=== PATIENT | female | born 1960 | race Caucasian/White ===

== ENCOUNTER → 2017-12-03 | Outpatient (CLI) | payer MEDICARE | END | disposition home or self-care (01) | LOC: MAMMO 14:38 | DX: Z12.31 Encounter for screening mammogram for malignant neoplasm of breast (principal) | CPT/HCPCS: 77063; 77067 ==

== ENCOUNTER → 2017-12-20 | Outpatient (CLI) | payer MEDICARE ==
[~2017-12-20] MED LIST: LIDOCAINE 2%/EPI 1:100,000 20 ML VIAL.; MIDAZOLAM HCL/PF 2 MG/2 ML VIAL.; PROMETHAZINE IM 25 MG/ML VIAL IM; fentaNYL PF VIAL 100 MCG/2 ML VIAL; oxyCODONE IR 5 MG TABLET PO
[2017-12-20 09:45] LABS: ADD MAN DIFF? NO
[2017-12-20 09:58] LABS: BASO # 0.1 x10^3/uL (0.0-0.2); BASO % 1 % (0-3); EOS # 0.2 x10^3/uL (0.0-0.7); EOS % 2 % (0-3); HEMATOCRIT 35.2 % (36.0-47.0); HEMOGLOBIN 11.6 g/dL (12.0-15.5); LYMPH # 2.6 x10^3/uL (1.0-4.8); LYMPH % 34 % (24-48); MEAN CORPUSCULAR HEMOGLOBIN 27 pg (25-35); MEAN CORPUSCULAR HGB CONC 33 g/dL (31-37); MEAN CORPUSCULAR VOLUME 83 fL (79-100); MONO # 0.8 x10^3/uL (0.0-1.1); MONO % 10 % (0-9); NEUT % 52 % (31-73); PLATELET COUNT 203 x10^3/uL (140-400); RED BLOOD COUNT 4.24 x10^6/uL (3.50-5.40); WHITE BLOOD COUNT 7.6 x10^3/uL (4.0-11.0)
[2017-12-20 09:59] LABS: INR 1.1 (0.8-1.1); PROTHROMBIN TIME PATIENT 13.4 SEC (11.7-14.0)
[2017-12-20] MEDS: PROMETHAZINE 12.5 MG in IV DEXTROSE 5% 50 ML IV (10:00)
[2017-12-20] MEDS: LIDOCAINE 2%/EPI 1:100,000 20 ML VIAL. IJ (11:59)
[2017-12-20] MEDS: MIDAZOLAM HCL/PF 2 MG/2 ML VIAL. IV (12:00)
[2017-12-20] MEDS: fentaNYL PF VIAL 100 MCG/2 ML VIAL IV (12:01)
== END | disposition home or self-care (01) ==
LOC: INTRAD 09:10
DX: I87.2 Venous insufficiency (chronic) (peripheral) (principal); E66.9 Obesity, unspecified; Z88.1 Allergy status to other antibiotic agents; Z88.2 Allergy status to sulfonamides; Z91.040 Latex allergy status; Z88.8 Allergy status to other drugs, medicaments and biological substances; Z91.041 Radiographic dye allergy status; I10 Essential (primary) hypertension; Z90.49 Acquired absence of other specified parts of digestive tract; K21.9 Gastro-esophageal reflux disease without esophagitis; Z90.721 Acquired absence of ovaries, unilateral; E89.0 Postprocedural hypothyroidism; F41.9 Anxiety disorder, unspecified
CPT/HCPCS: 36415; 36561; 36590; 76937; 77001; 85025; 85610; 99152; 99153; A4215; C1751; C1892; J0690; J1644; J2060; J2250; J2550; J3010; J3490

== ENCOUNTER 2018-04-08 14:45 | Emergency (ER) | payer MEDICARE ==
[2018-04-08 15:45] LABS: ADD MAN DIFF? NO
[2018-04-08 15:48] LABS: BASO % 1 % (0-3); EOS # 0.1 x10^3/uL (0.0-0.7); EOS % 2 % (0-3); HEMATOCRIT 36.3 % (36.0-47.0); HEMOGLOBIN 11.8 g/dL (12.0-15.5); LYMPH # 2.5 x10^3/uL (1.0-4.8); LYMPH % 31 % (24-48); MEAN CORPUSCULAR HEMOGLOBIN 28 pg (25-35); MEAN CORPUSCULAR HGB CONC 33 g/dL (31-37); MEAN CORPUSCULAR VOLUME 85 fL (79-100); MONO # 0.8 x10^3/uL (0.0-1.1); MONO % 10 % (0-9); NEUT # 4.6 x10^3uL (1.8-7.7); NEUT % 57 % (31-73); PLATELET COUNT 212 x10^3/uL (140-400); RED BLOOD COUNT 4.25 x10^6/uL (3.50-5.40); RED CELL DISTRIBUTION WIDTH 17.4 % (11.5-14.5); WHITE BLOOD COUNT 8.2 x10^3/uL (4.0-11.0)
[2018-04-08 15:49] LABS: BILIRUBIN,URINE NEGATIVE (NEG); CLARITY,URINE CLEAR; COLOR,URINE YELLOW; GLUCOSE,URINE NEGATIVE (NEG); NITRITE,URINE NEGATIVE (NEG); PH,URINE 5.5; PROTEIN,URINE NEGATIVE (NEG-TRACE)
[2018-04-08 15:56] LABS: ANION GAP 7 (6-14); BLOOD UREA NITROGEN 16 mg/dL (7-20); BUN/CREATININE RATIO 18 (6-20); CALCIUM 7.9 mg/dL (8.5-10.1); CARBON DIOXIDE 30 mmol/L (21-32); CHLORIDE 105 mmol/L (98-107); CREATININE 0.9 mg/dL (0.6-1.0); GFR 63.9; GLUCOSE 82 mg/dL (70-99); POTASSIUM 3.9 mmol/L (3.5-5.1); SODIUM 142 mmol/L (136-145)
[2018-04-08 16:02] LABS: ALBUMIN 3.3 g/dL (3.4-5.0); ALK PHOS 113 U/L (46-116); ALT (SGPT) 22 U/L (14-59); AST (SGOT) 17 U/L (15-37); TOTAL BILIRUBIN 0.5 mg/dL (0.2-1.0); TOTAL PROTEIN 6.5 g/dL (6.4-8.2)
[2018-04-08 16:03] LABS: BACTERIA,URINE 0 /HPF (0-FEW); HYALINE CASTS, URINE FEW /HPF; RBC,URINE 0 /HPF (0-2); SQUAMOUS EPITHELIAL CELL,UR OCC /LPF; WBC,URINE OCC /HPF (0-4)
[2018-04-08] MEDS: fentaNYL PF VIAL 100 MCG/2 ML VIAL IV (16:16)
[2018-04-08] MEDS: PROMETHAZINE IM 25 MG/ML VIAL IM (16:42)
[2018-04-08] MEDS: NON FORMULARY ITEM 1 EA in IV NORMAL SALINE 50ML 50 ML IV (16:46)
[2018-04-08 16:56] LABS: PROCALCITONIN < 0.10 ng/mL (0.00-0.10)
[2018-04-08 18:19] LABS: LACTIC ACID 1.5 mmol/L (0.4-2.0)
[2018-04-08] MEDS: HEPARIN PF 500 UNIT/5 ML DISP.SYRIN. IV (19:11)
== END 2018-04-08 19:15 | disposition home or self-care (01) ==
LOC: ER 14:45
DX: R10.32 Left lower quadrant pain (principal); R10.84 Generalized abdominal pain; R10.31 Right lower quadrant pain; K21.9 Gastro-esophageal reflux disease without esophagitis; I10 Essential (primary) hypertension; Z90.49 Acquired absence of other specified parts of digestive tract; Z88.2 Allergy status to sulfonamides; Z88.6 Allergy status to analgesic agent; Z88.1 Allergy status to other antibiotic agents; Z91.041 Radiographic dye allergy status; Z91.040 Latex allergy status; Z88.5 Allergy status to narcotic agent; Z88.8 Allergy status to other drugs, medicaments and biological substances
CPT/HCPCS: 36415; 74022; 74176; 80053; 81001; 83605; 84145; 84443; 85025; 96365; 96372; 96375; 99285-25; J2550; J3010

== ENCOUNTER → 2018-08-22 | Outpatient (CLI) | payer MEDICARE ==
[2018-07-25 14:08] VITALS: BP 114/60
[~2018-08-22] MED LIST changes: +CLON1TAB PO; +GABA-586 PO; +LEVO175T2 PO; -LIDOCAINE 2%/EPI 1:100,000 20 ML VIAL.; +LISI-334 PO; -MIDAZOLAM HCL/PF 2 MG/2 ML VIAL.; +OXYC15TA PO; +PANT20TA2 PO; -PROMETHAZINE IM 25 MG/ML VIAL IM; +SENN-37 PO; -fentaNYL PF VIAL 100 MCG/2 ML VIAL; -oxyCODONE IR 5 MG TABLET PO
--- NOTE | 2018-08-23 09:52 | SLEEP ---
DATE OF STUDY: 08/22/2018 ATTENDING PHYSICIAN: Dr. Jc Mena REFERRING PHYSICIAN: Dr. Zeng. The patient is a 58-year-old who weighs 146 pounds with a BMI of 28. The patient's Garland score was 7. The patient underwent a diagnostic sleep study at [facility]. During the night study, the patient spent 439 minutes in bed and slept for 380 minutes with a sleep efficiency of 87%. Sleep latency was 7 minutes, with a REM latency of 400 minutes, which is prolonged. Overall, sleep architecture showed normal stage 1 sleep, increased stage 2 sleep, normal slow wave and reduced REM sleep, which is 4% of the total sleep time. During the night study, the patient had 18 obstructive apneas, 3 mixed apneas, no central apneas and 62 hypopneas. The patient's apnea hypopnea index was 13 per hour, supine index 16 per hour and a REM index of 71 per hour. EKG monitoring revealed normal sinus rhythm, average heart rate was 80 beats per minute, no sustained arrhythmias were observed. Nocturnal oximetry study revealed a mean oxygen saturation of 98%, the lowest of 80%. 5% of time oxygen saturation remained between 80% and 89%. PLMS were not seen. Due to low AHI, the patient did not meet the split night criteria for CPAP initiation. IMPRESSION: 1. Mild sleep apnea-hypopnea syndrome with moderate increase during supine sleep and further worsening during REM sleep. Total AHI of 13 per hour. Supine AHI 16 per hour and a REM AHI of 71 per hour. 2. Mild nocturnal hypoxia secondary to obstructive sleep apnea. 3. No clinically significant PLMS. RECOMMENDATIONS: 1. If the patient is clinically symptomatic or has co-morbid conditions, then the patient would benefit from treatment of sleep apnea with either an oral appliance or a trial of CPAP titration. 2. If the patient undergoes CPAP titration study, then she should be followed up in 4-6 weeks to assess compliance with CPAP and to document clinical improvement. 3. Avoid HEALTH AND WELLNESS COORDINATOR depressants. 4. Caution regarding driving until symptoms of sleep apnea resolve with the above recommendations. 5. Weight loss is advised. ERIC TEE MD DR: ALIA/riccardo JOB#: [id number] / [id number] JC Sal SABATO MTDD
== END | disposition home or self-care (01) ==
LOC: SLPLAB 14:27
PROVIDERS: ATTEND Internal Medicine Pulmonary Disease
DX: G47.33 Obstructive sleep apnea (adult) (pediatric) (principal); G47.34 Idiopathic sleep related nonobstructive alveolar hypoventilation
CPT/HCPCS: 95810

== ENCOUNTER → 2018-09-26 | Outpatient (CLI) | payer MEDICARE ==
[2018-07-25 14:08] VITALS: BP 114/60
[~2018-09-26] MED LIST changes: -GABA-586 PO; +GABA300C18 PO; +GADOBUTROL 7.5 MMOL/7.5 ML VIAL ONE
--- NOTE | 2018-09-26 09:25 | RAD ---
PQRS Compliance Statement: One or more of the following individualized dose reduction techniques were utilized for this examination: 1. Automated exposure control 2. Adjustment of the mA and/or kV according to patient size 3. Use of iterative reconstruction technique CT chest without contrast September 26, 2018 INDICATION: Lung nodule. COMPARISON: CT abdomen/pelvis April 08, 2018 TECHNIQUE: Multiple axial CT images of the chest were obtained without intravenous contrast. Coronal and sagittal reformats are provided. FINDINGS: Chest wall infusion port catheter is identified with the distal tip terminating in the cavoatrial junction. Heart size within normal limits. Ascending thoracic aorta is normal in caliber measuring up to 3.3 cm. No significant pericardial effusion. Trachea is normal in appearance. Thoracic esophagus is intact. No pathologically enlarged axillary, mediastinal or hilar lymph nodes are identified. There is mild centrilobular pulmonary emphysema. Stable 5 mm solid noncalcified pulmonary nodule in the right middle lobe (series 2, image 30). No additional solid noncalcified pulmonary nodules are identified. There are no pleural effusions. No pulmonary vascular congestion or pneumothorax. Gallbladder surgically absent. Adrenal glands are normal in appearance. There is mild fatty atrophy of the pancreas. No suspicious osseous amount is identified. IMPRESSION: Stable 5 mm solid noncalcified pulmonary nodule in the right middle lobe. Fleischner 2017 pulmonary nodule guidelines recommend optional chest CT in one year for pulmonary nodules greater than or equal to 6 mm. Electronically signed by: Lesley Pang MD (09/26/2018 9:21 AM) [facility]
== END | disposition home or self-care (01) ==
LOC: CT 08:28
PROVIDERS: ATTEND Internal Medicine Pulmonary Disease
DX: R91.1 Solitary pulmonary nodule (principal); J43.2 Centrilobular emphysema; K86.89 Other specified diseases of pancreas
CPT/HCPCS: 71250

== ENCOUNTER → 2018-09-26 | Outpatient (CLI) | payer MEDICARE ==
[2018-07-25 14:08] VITALS: BP 114/60
[~2018-09-26] MED LIST changes: +GADOBUTROL 7.5 MMOL/7.5 ML VIAL IV ONE; -GADOBUTROL 7.5 MMOL/7.5 ML VIAL ONE; +HEPARIN PF 500 UNIT/5 ML DISP.SYRIN. IV ONE
--- NOTE | 2018-09-28 09:06 | RAD ---
Fluoroscopic evaluation right internal jugular PowerPort 09/26/2018 Indication: Paroxysmal discomfort and redness Discussion: The risks and benefits of the procedure were discussed the patient. Informed consent was obtained. A timeout procedure was performed. The right chest was prepped using sterile barrier technique. Fluoroscopic evaluation demonstrates the port to be normal in position. No gross fracture is identified. The port was accessed. Gadolinium based contrast was administered through the port demonstrating no extravasation. Contrast flows from the catheter tip in an expected fashion. The catheter was flushed and packed with heparin. Fluoroscopy time 0.5 MINUTES dose area product 15 Gycm2 Impression: Normal fluoroscopic findings.
== END | disposition home or self-care (01) ==
LOC: INTRAD 08:25
PROVIDERS: ATTEND Surgery
DX: Z45.2 Encounter for adjustment and management of vascular access device (principal); G47.33 Obstructive sleep apnea (adult) (pediatric); I10 Essential (primary) hypertension; K21.9 Gastro-esophageal reflux disease without esophagitis; Z90.49 Acquired absence of other specified parts of digestive tract; Z91.041 Radiographic dye allergy status; Z88.2 Allergy status to sulfonamides; Z88.1 Allergy status to other antibiotic agents; Z88.8 Allergy status to other drugs, medicaments and biological substances; Z98.890 Other specified postprocedural states; Z88.6 Allergy status to analgesic agent
CPT/HCPCS: 36598; A9585

== ENCOUNTER 2018-10-07 07:17 | Outpatient (CLI) | payer MEDICARE ==
[2018-10-07] VITALS (8 sets, daily range): BP systolic 110–145; BP diastolic 65–90
[~2018-10-07] VITALS: Ht 154.9 cm; Wt 67.1 kg
[~2018-10-07 07:17] MED LIST changes: -GADOBUTROL 7.5 MMOL/7.5 ML VIAL IV ONE; -HEPARIN PF 500 UNIT/5 ML DISP.SYRIN. IV ONE
[2018-10-07] MEDS ORDERED: LIDOCAINE 1%/EPI 1:100,000 20 ML VIAL. ONE (07:46)
[2018-10-07] MEDS ORDERED: ALPR0.5T PO (08:05)
[2018-10-07 08:13] LABS: BASO # 0.1 x10^3/uL (0.0-0.2); BASO % 1 % (0-3); EOS # 0.2 x10^3/uL (0.0-0.7); EOS % 2 % (0-3); HEMATOCRIT 35.8 % (36.0-47.0); HEMOGLOBIN 12.3 g/dL (12.0-15.5); LYMPH # 2.6 x10^3/uL (1.0-4.8); LYMPH % 30 % (24-48); MEAN CORPUSCULAR HEMOGLOBIN 30 pg (25-35); MEAN CORPUSCULAR HGB CONC 35 g/dL (31-37); MEAN CORPUSCULAR VOLUME 87 fL (79-100); MONO # 0.8 x10^3/uL (0.0-1.1); MONO % 9 % (0-9); NEUT # 5.2 x10^3uL (1.8-7.7); NEUT % 59 % (31-73); PLATELET COUNT 223 x10^3/uL (140-400); RED BLOOD COUNT 4.12 x10^6/uL (3.50-5.40); RED CELL DISTRIBUTION WIDTH 15.6 % (11.5-14.5); WHITE BLOOD COUNT 8.9 x10^3/uL (4.0-11.0)
[2018-10-07 08:22] LABS: PROTHROMBIN TIME PATIENT 13.9 SEC (11.7-14.0)
[2018-10-07 08:33] LABS: PARTIAL THROMBOPLASTIN TIME > 150 SEC (24-38)
[2018-10-07] MEDS ORDERED: HEPARIN PF 500 UNIT/5 ML DISP.SYRIN. IV ONE ×2 (08:51→09:45)
[2018-10-07 08:54] LABS: PROTHROMBIN TIME PATIENT 13.4 SEC (11.7-14.0)
[2018-10-07] MEDS ORDERED: VANCOMYCIN 1GM IVPB FOR OMNI 250 ML ONE (09:10)
[2018-10-07] MEDS ORDERED: MIDAZOLAM HCL/PF 5 MG/5 ML VIAL. ONE (09:10)
[2018-10-07] MEDS ORDERED: fentaNYL PF VIAL 250 MCG/5 ML VIAL ONE (09:11)
[2018-10-07] MEDS ORDERED: ONDANSETRON PF 4 MG/2 ML VIAL. ONE (09:20)
[2018-10-07] MEDS ORDERED: VANCOMYCIN 1GM IVPB FOR OMNI 250 ML IRR ONE (09:45)
[2018-10-07] MEDS ORDERED: LIDOCAINE 1%/EPI 1:100,000 20 ML VIAL. IJ ONE (09:45)
[2018-10-07] MEDS ORDERED: ONDANSETRON PF 4 MG/2 ML VIAL. IV ONE (09:45)
[2018-10-07] MEDS ORDERED: fentaNYL PF VIAL 250 MCG/5 ML VIAL IV ONE (09:45)
[2018-10-07] MEDS ORDERED: MIDAZOLAM HCL/PF 5 MG/5 ML VIAL. IV ONE (09:45)
--- NOTE | 2018-10-07 13:33 | NUR ---
Discharge Note: MIS LASSITER Discharge instructions and discharge home medications reviewed with Patient and a copy given. All questions have been answered and understanding verbalized. The following instructions and handouts were given: education was given to patient regarding moderate sedation and aris cath replacement. Pt was also instructed to continue home medications as directed. Pt verbalized understanding. Discontinued lines and drains: peripheral iv was discontinued with no complications. Catheter tip was intact. Patient discharged to home with self care via self care. Pt was accompanied by daughter.
--- NOTE | 2018-10-07 14:13 | RAD ---
Procedure: Ultrasound and fluoroscopically guided placement of left internal jugular power port.. Removal of right internal jugular port 10/07/2018 2:06 PM Clinical Indication: Intermittent pain and redness. Patient no longer wants right-sided port, but reports frequent hospitalization in need for infusions with difficult IV access. Sedation: Conscious sedation was administered for 60 minutes. The patient was monitored by a qualified independent observer throughout the time of sedation. Please refer to the medical record for exact doses of medications utilized to achieve moderate sedation. Fluoroscopy time: 1.0 MIN Dose area product: 2 Gycm2 Consent: The procedure was explained in its entirety to the patient or the patients designated customer contact representative by a member of the treatment team, including a discussion of the risks, benefits and commonly accepted alternatives to the procedure, as well as the expected consequences of no therapy whatsoever. Discussion of the risks included, but was not limited to, those that are most frequent and those that are rare but possibly severe or life-threatening, as well as the possibility of unforeseen complications. Technique and Findings: All elements of maximal sterile barrier technique including the use of a cap, mask, sterile gown, sterile gloves, large sterile sheet, appropriate hand hygiene, and 2% chlorhexidine for cutaneous antisepsis (or acceptable alternative antiseptic per current guidelines) were followed for this procedure. Following informed consent, and a timeout procedure, the patient was prepped and draped in the usual sterile fashion. Ultrasound interrogation of the right neck revealed patency and compressibility of the left internal jugular vein. A 21-gauge micropuncture was then used to gain access to this vein under ultrasound guidance. A hard copy ultrasound image was recorded. The needle was exchanged over a wire for a sheath. A 1 inch incision was made several centimeters inferior to the venotomy site. A catheter was tunneled from this site dermatotomy site in the neck. Catheter was advanced through peel-away sheath such that its tip was in the proximal right atrium with the patient supine. The catheter was trimmed to length and connected to the port reservoir. The port was found to flush and aspirate normally. The wound was closed in layers using 4-0 Vicryl suture. Sterile dressings were applied. 1% lidocaine was made over the right internal jugular power port reservoir. The port and catheter were removed intact. This was confirmed fluoroscopically. The wound was closed in layers using 4-0 Vicryl suture. Sterile dressings were applied Impression: 1.Successful ultrasound and fluoroscopically guided placement of a left internal jugular tunneled central venous catheter with port 2. Successful removal of right internal jugular tunneled central venous catheter with port
== END 2018-10-07 12:50 | disposition home or self-care (01) ==
LOC: INTRAD 07:17
PROVIDERS: ATTEND Surgery
DX: Z45.2 Encounter for adjustment and management of vascular access device (principal); I10 Essential (primary) hypertension; Z88.2 Allergy status to sulfonamides; Z88.1 Allergy status to other antibiotic agents; Z88.5 Allergy status to narcotic agent; Z91.041 Radiographic dye allergy status; Z91.040 Latex allergy status; Z88.8 Allergy status to other drugs, medicaments and biological substances; Z79.01 Long term (current) use of anticoagulants; Z79.899 Other long term (current) drug therapy
CPT/HCPCS: 36415; 36561; 36590; 76937; 77001; 85025; 85610; 85730; 99152; 99153; C1788; C1892; J2250; J2405; J3010; J3370; J3490; C1751

== ENCOUNTER → 2019-05-02 | Outpatient (CLI) | payer MEDICARE ==
[2019-04-12 13:14] VITALS: BP 114/74
[~2019-05-02] MED LIST changes: +ALPR0.5T PO
--- NOTE | 2019-05-02 14:26 | RAD ---
Chest CT without contrast Clinical indications: Musculoskeletal chest pain. COMPARISON: September 26, 2018. TECHNIQUE: Noncontrast helical CT scanning of the chest was performed. Without contrast, the sensitivity to detect organ pathology is decreased. PQRS compliance Statement One or more of the following individualized dose reduction techniques were utilized for this study: 1. Automated exposure control 2. Adjustment of the mA and/or kV according to patient size 3. Use of iterative reconstruction technique FINDINGS: No enlarged thoracic lymphadenopathy is evident. No focal aneurysmal dilatation of the thoracic aorta is seen. The heart size is normal and no pericardial effusion is seen. No adrenal mass is evident. Again seen is a 5 mm lung nodule within the lateral segment right middle lobe which is unchanged. This could be seen on abdomen CT dated January 17, 2015 consistent with a benign finding. No new lung nodules. Few scattered areas of groundglass lung infiltrates are seen most likely representing atelectasis. No lung consolidation is seen. No pleural effusion or pneumothorax is evident. The proximal bronchial tree is patent. No lytic process is seen. No compression fracture is evident. No rib fracture is seen. IMPRESSION: No acute abnormality of the chest is seen. Stable 5 mm lung nodule since 2014 consistent with a benign finding. Electronically signed by: Tae Mckeon MD (05/02/2019 2:23 PM) [facility]
== END | disposition home or self-care (01) ==
LOC: CT 09:34
PROVIDERS: ATTEND Surgery
DX: R91.1 Solitary pulmonary nodule (principal); R91.8 Other nonspecific abnormal finding of lung field; Z85.72 Personal history of non-Hodgkin lymphomas
CPT/HCPCS: 71250

== ENCOUNTER 2019-05-25 09:16 | Day surgery (SDC) | payer MEDICARE, OTHER ==
[~2019-05-25] VITALS: Ht 152.4 cm; Wt 72.0 kg
[~2019-05-25 09:16] MED LIST changes: +ACETAMINOPHEN 500 MG TABLET PO PRN; +ALPR1TAB6 PO; +ASPI-630 PO; +BUPIVACAINE-EPI 0.25%-1:200000 MPF 30 ML VIAL. INJ ONE; +CEPH-264 PO; +EPIPEN 2-P0.3 MG/0.3 IJ; +ERGO500027 PO; +IV RINGERS,LACTATED 1000ML 1,000 ML IV SCH; +LEVO112T4 PO; +LIDOCAINE 1% PF 2 ML VIAL. ID PRN; +LISI30TA4 PO; +MULT1TAB52 PO; +ONDANSETRON PF 4 MG/2 ML VIAL. IV PRN; +OXYC30TA21 PO; +PROCHLORPERAZINE 10 MG/2 ML VIAL. IV PRN
[2019-05-25] MEDS ORDERED: PROPOFOL 20 ML IV ONE ×2 (09:45→12:31)
[2019-05-25] MEDS ORDERED: MIDAZOLAM HCL/PF 2 MG/2 ML VIAL. ONE (09:45)
[2019-05-25] MEDS ORDERED: fentaNYL PF VIAL 100 MCG/2 ML VIAL ONE (09:45)
--- NOTE | 2019-05-25 11:20 | PDOC4 ---
Operative Note Operative Note Date: 05/25/2019 Preoperative diagnosis: Right chest wall mass with pain Postoperative diagnosis: Same Procedure: Excision of right chest wall mass Surgeon: Emmanuel Specimen: Right chest wall mass Dictation: Patient is a 59-year-old female who's had a Port-A-Cath placed on her left chest which had to be removed subsequent had a right Port-A-Cath placed but the site of the previous left Port-A-Cath is become painful with a keloid formation and a mass. The procedure of excision was explained to the patient detail risk benefits were also discussed including bleeding infection alternatives to this procedure also discussed with patient seemed to understand jeevan verbal and written consent to have the procedure performed. Patient was taken to the operating room placed in supine position IV sedation was initiated by anesthesia once patient was brought was sedated her left neck and chest were prepped and draped usual sterile fashion using alcohol secondary to her allergies. Area around the mass was injected with quarter percent Marcaine with epinephrine elliptical incision was made with 15 blade scalpel was carried down through the subcutaneous tissue was completely excised and sent for pathology hemostasis control electrocautery wound was then closed in 2 layers a deep layer running 3-0 Vicryl and skin was approximate for septic and a Monocryl Mastisol Steri-Strips and island dressing were applied. Patient was awakened from sedation taken to recovery in stable condition all sponge instrument needle counts listed as correct estimate blood loss 5 mL LUZ IYER MD May 25, 2019 11:20
--- NOTE | 2019-05-25 11:23 | DISCH ---
DISCHARGE INSTRUCTIONS Condition on Discharge Condition on Discharge: Stable Activity After Discharge Activity Instructions for Disc: Activity as tolerated Diet after Discharge Diet after Discharge: Regular Wound Incision Care Other wound/incision instructi: May shower in 24 hours Contacting the DRDavid after DC Call your doctor for: If your condition worsens Follow-Up Follow up with: Dr. Iyer in 2 weeks LUZ IYER MD May 25, 2019 11:23
[2019-05-25] MEDS ORDERED: ALPRAZolam 1 MG TABLET PO ONE (12:00)
[2019-05-25] MEDS ORDERED: PHENYLEPHRINE in 0.9% NACL PF 1 MG/10 ML SYRINGE. IV ONE (12:14)
[2019-05-25] MEDS ORDERED: GLYCOPYRROLATE 1 MG/5 ML VIAL. ONE (12:15)
[2019-05-25] MEDS ORDERED: ESMOLOL 100 MG/10 ML VIAL. IVP ONE (12:26)
[2019-05-25] MEDS ORDERED: HEPARIN PF 500 UNIT/5 ML DISP.SYRIN. IV ONE ×2 (12:55→13:00)
[2019-05-25 13:20] VITALS: BP 106/53
--- NOTE | 2019-05-30 17:06 | PATHOLOGY ---
[facility] Accession Number: [id number] . 01 Material submitted: . chest - CHEST WALL MASS RIGHT SIDE. Modifiers: wall, right . 01 Clinical history: . Right chest wall pain, keloid . 02 Diagnosis: Skin and subcutaneous tissue, right side chest wall mass excision: - Keloid, with focal chronic inflammation and foreign body granulomatous reaction. (JPM:jose alfredo; 05/30/2019) QMS/05/30/2019 . 02 Comment: There is no evidence of malignancy. . 02 Electronically signed: . Kris Chaney MD, Pathologist NPI- [id number] . 01 Gross description: . Received in formalin labeled "Barbara Quintana, chest wall mass right side," is an ellipse of skin with attached underlying soft tissue measuring 4.0 x 1.3 cm and excised to a depth of up to 1.3 cm. The epidermal surface displays a raised, pale pink-arias possible scar measuring 2.0 x 0.4 x 0.1 cm that extends to within 0.2 cm of both peripheral edges. The surgical margin is inked. Serial sectioning reveals firm, pale arias to partially hemorrhagic cut surfaces through the possible scar. The remaining cut surfaces are pale yellow-arias to partially hemorrhagic in appearance. The specimen is sectioned into 15 pieces and submitted entirely in cassettes A1 through A7, with bisected tips in A7. . Also received within the specimen container is a segment of pale arias to dark brown soft tissue admixed with yellow, lobulated adipose tissue measuring 1.4 x 1.2 x 0.3 cm. This segment is inked black, sectioned and submitted entirely in cassette A8. (DAC; 05/26/2019) XDC/XDC . 02 Pathologist provided ICD-10: L91.0 . 02 CPT . 703102 Specimen Comment: A courtesy copy of this report has been sent to Specimen Comment: [phone], . Specimen Comment: Report sent to / DR RUSSELL Performed at: 01 [facility] [address], [place] [id number] MD Bassem Wayne MD Phone: [phone] Performed at: 02 [facility] [address] [place], [place] [id number] MD Kris Chaney MD Phone: [phone]
== END 2019-05-25 13:30 | disposition home or self-care (01) ==
LOC: SURG 09:16
PROVIDERS: ATTEND Surgery
DX: L91.0 Hypertrophic scar (principal); L08.89 Other specified local infections of the skin and subcutaneous tissue; I10 Essential (primary) hypertension; F41.9 Anxiety disorder, unspecified; E89.0 Postprocedural hypothyroidism; Z98.51 Tubal ligation status; Z79.82 Long term (current) use of aspirin; Z98.890 Other specified postprocedural states; Z90.721 Acquired absence of ovaries, unilateral; Z88.5 Allergy status to narcotic agent; Z88.8 Allergy status to other drugs, medicaments and biological substances; Z88.6 Allergy status to analgesic agent; Z88.1 Allergy status to other antibiotic agents; Z91.040 Latex allergy status
CPT/HCPCS: 11404; 12032; J0780; J2250; J2370; J2704; J3010; J3490; 88305

== ENCOUNTER → 2019-09-11 | Outpatient (CLI) | payer MEDICARE, OTHER ==
[2019-08-16 13:13] VITALS: BP 151/68
[~2019-09-11] MED LIST changes: -ACETAMINOPHEN 500 MG TABLET PO PRN; +ALTEPLASE 2 MG VIAL INT CAT ONE; +ALTEPLASE 2MG VIAL 5 MG in IV NORMAL SALINE 50ML 30 ML IV ONE; -BUPIVACAINE-EPI 0.25%-1:200000 MPF 30 ML VIAL. INJ ONE; +HEPARIN PF 500 UNIT/5 ML DISP.SYRIN. IVP ONE; -IV RINGERS,LACTATED 1000ML 1,000 ML IV SCH; -LIDOCAINE 1% PF 2 ML VIAL. ID PRN; -ONDANSETRON PF 4 MG/2 ML VIAL. IV PRN; -PROCHLORPERAZINE 10 MG/2 ML VIAL. IV PRN
[2019-09-11 15:28] LABS: ALBUMIN 3.2 g/dL (3.4-5.0); ALBUMIN/GLOBULIN RATIO 0.8 (1.0-1.7); CALCIUM 8.8 mg/dL (8.5-10.1); CREATININE 0.8 mg/dL (0.6-1.0); GFR 72.9; POTASSIUM 3.9 mmol/L (3.5-5.1); TOTAL BILIRUBIN 0.7 mg/dL (0.2-1.0); TOTAL PROTEIN 7.1 g/dL (6.4-8.2)
== END | disposition home or self-care (01) ==
LOC: LAB 11:09
PROVIDERS: ATTEND Family Medicine
DX: Z45.2 Encounter for adjustment and management of vascular access device (principal); E87.6 Hypokalemia; F41.9 Anxiety disorder, unspecified; I10 Essential (primary) hypertension; E03.3 Postinfectious hypothyroidism; Z79.82 Long term (current) use of aspirin
CPT/HCPCS: 36415; 36593; 80053; 84436; 84443; J2997; 36591; 96374; 96523

== ENCOUNTER → 2019-10-13 | Outpatient (CLI) | payer MEDICARE, OTHER ==
[2019-08-16 13:13] VITALS: BP 151/68
[~2019-10-13] MED LIST changes: -ALTEPLASE 2 MG VIAL INT CAT ONE; -ALTEPLASE 2MG VIAL 5 MG in IV NORMAL SALINE 50ML 30 ML IV ONE
== END | disposition home or self-care (01) ==
LOC: OPS 12:29
PROVIDERS: ATTEND Family Medicine
DX: Z45.2 Encounter for adjustment and management of vascular access device (principal); F41.9 Anxiety disorder, unspecified; I10 Essential (primary) hypertension; E03.3 Postinfectious hypothyroidism; Z79.82 Long term (current) use of aspirin
CPT/HCPCS: 96523

== ENCOUNTER → 2020-01-12 | Outpatient (CLI) | payer MEDICARE, OTHER ==
[2019-08-16 13:13] VITALS: BP 151/68
[~2020-01-12] MED LIST changes: -HEPARIN PF 500 UNIT/5 ML DISP.SYRIN. IVP ONE; +HEPARIN PF 500 UNIT/5 ML DISP.SYRIN. IVP PRN
--- NOTE | 2020-01-12 09:20 | NUR ---
Port a cath accessed under sterile technique. Flushed easily. Good blood return. Flushed with 30 cc NS and 5 cc Heparin. Fleming needle only removed. Paper tape and 4x4 applied to site. Addendum: 01/12/20 at 0922 by DEEP GO RN Amended: Links added.
== END | disposition home or self-care (01) ==
LOC: OPS 08:48
PROVIDERS: ATTEND Family Medicine
DX: Z45.2 Encounter for adjustment and management of vascular access device (principal); F41.9 Anxiety disorder, unspecified; I10 Essential (primary) hypertension; E03.3 Postinfectious hypothyroidism; Z79.82 Long term (current) use of aspirin
CPT/HCPCS: 96523; J1642

== ENCOUNTER → 2020-08-02 | Outpatient (CLI) | payer MEDICARE, OTHER ==
[2019-08-16 13:13] VITALS: BP 151/68
[~2020-08-02] MED LIST changes: +HEPARIN PF 500 UNIT/5 ML DISP.SYRIN. IVP ONE; -HEPARIN PF 500 UNIT/5 ML DISP.SYRIN. IVP PRN; -LEVO112T4 PO; +LEVO112T49 PO; +MULT-445 PO; -MULT1TAB52 PO; -OXYC15TA PO; +OXYC15TA3 PO
== END | disposition home or self-care (01) ==
LOC: OPS 11:55
PROVIDERS: ATTEND Family Medicine
DX: Z45.2 Encounter for adjustment and management of vascular access device (principal); F41.9 Anxiety disorder, unspecified; I10 Essential (primary) hypertension; Z79.82 Long term (current) use of aspirin
CPT/HCPCS: 96523; J1642

== ENCOUNTER → 2020-09-05 | Outpatient (CLI) | payer MEDICARE, OTHER ==
[2020-09-05 12:57] VITALS: BP 124/49
--- NOTE | 2020-09-05 12:57 | NUR ---
Patient arrived for monthly port flush. Port a cath accessed under sterile technique. Flushed easily. Good blood return. Flushed with 30cc NS and 5cc heparin. 4x4 and tape applied to site. Addendum: 09/05/20 at 1411 by DEEP GO RN Amended: Links added.
== END | disposition home or self-care (01) ==
LOC: OPS 12:17
PROVIDERS: ATTEND Family Medicine
DX: Z45.2 Encounter for adjustment and management of vascular access device (principal); F41.9 Anxiety disorder, unspecified; I10 Essential (primary) hypertension; Z79.82 Long term (current) use of aspirin
CPT/HCPCS: 96523; J1642

== ENCOUNTER → 2020-10-10 | Outpatient (CLI) | payer MEDICARE, OTHER ==
[2020-09-05 12:57] VITALS: BP 124/49
[~2020-10-10] MED LIST changes: -LISI-334 PO; +LISI20TA18 PO; +PERM60CR11 TP
== END | disposition home or self-care (01) ==
LOC: OPS 13:01
PROVIDERS: ATTEND Family Medicine
DX: Z45.2 Encounter for adjustment and management of vascular access device (principal); F41.9 Anxiety disorder, unspecified; I10 Essential (primary) hypertension; Z79.82 Long term (current) use of aspirin
CPT/HCPCS: G0463; J1642; 96523

== ENCOUNTER → 2020-11-08 | Outpatient (CLI) | payer MEDICARE, OTHER ==
[2020-09-05 12:57] VITALS: BP 124/49
[~2020-11-08] MED LIST changes: -HEPARIN PF 500 UNIT/5 ML DISP.SYRIN. IVP ONE
== END | disposition home or self-care (01) ==
LOC: OPS 13:17
PROVIDERS: ATTEND Family Medicine
DX: Z45.2 Encounter for adjustment and management of vascular access device (principal); I10 Essential (primary) hypertension; F41.9 Anxiety disorder, unspecified; Z79.82 Long term (current) use of aspirin
CPT/HCPCS: 96523; G0463

== ENCOUNTER 2020-12-06 13:20 | Emergency (ER) | payer MEDICARE, OTHER ==
[2020-09-05 12:57] VITALS: BP 124/49
[~2020-12-06] VITALS: Ht 160 cm; Wt 66.5 kg
[~2020-12-06 13:20] MED LIST changes: -HEPARIN PF 500 UNIT/5 ML DISP.SYRIN. IVP ONE; -PERM60CR11 TP
[2020-12-06] MEDS ORDERED: PERM60CR11 TP (14:27)
--- NOTE | 2020-12-06 14:27 | ED.ADGEN ---
Past Medical History Past Medical History: GERD, Hypertension, Other Additional Past Medical Histor: BOWEL OBSTRUCTIONS, ADHESIONS Past Surgical History: Appendectomy, Cholecystectomy, Other Additional Past Surgical Histo: MULTIPLE BOWEL SURGERIES Smoking Status: Former Smoker Additional Information: quit smoking 30 years ago Alcohol Use: None Drug Use: None General Adult EDM: Chief Complaint: SKIN RASH/ABSCESS HPI: HPI: Patient is a 60 year old female who presents to the emergency department with concerns of bites all over her body. Patient reports that she has been suffering from the bites for over a year. She states that she has even changed apartments and has had exterminators out who have failed to determine that there were any bedbug infestation. She reports that she was able to capture one of the insects and it was identified as a kissing bug. Patient reports that her fianc is also suffering from the same bites. They are currently living at different residences but reports that they are still being bitten. She denies any shortness of breath, wheezing, new medications, new detergents, or new foods. Patient reports she was seen at by a resident hook puller but was not given any answers to her problems. Patient currently rates her discomfort a 5 out of 10 on the pain scale, she states it is everywhere that the bites occur. Review of Systems: Review of Systems: Complete ROS is negative unless otherwise noted in HPI. Allergies: Allergies: Allergies Coded Allergies Type Severity Reaction Last Updated Verified Iodinated Contrast Media Allergy Severe Anaphylaxis 12/06/20 Yes azithromycin Allergy Severe Anaphylaxis 12/06/20 Yes bee venom protein (honey bee) Allergy Severe BEES & WASP - CAN'T BREATH/HIVES 12/06/20 Yes levofloxacin Allergy Severe ANAPHYLAXIS 12/06/20 Yes shellfish derived Allergy Severe ANAPHYLAXIS (IODINE) 12/06/20 Yes adhesive tape Allergy Intermediate AND BAND AID-BAD RASH/ITCH 12/06/20 Yes chlorhexidine Allergy Intermediate Hives 12/06/20 Yes hyoscyamine Allergy Intermediate SICK OF STOMACH/HIVES 12/06/20 Yes latex Allergy Intermediate BREATHING PROBLEM/HIVES 12/06/20 Yes meperidine Allergy Intermediate PASSED OUT/HIVES 12/06/20 Yes morphine Allergy Intermediate CALLED RAPID RESPONSE 12/06/20 Yes polyethylene glycol Allergy Intermediate head to toe hives 12/06/20 Yes polyethylene glycol 3350 Allergy Intermediate head to toe hives 12/06/20 Yes potassium chloride Allergy Intermediate head to toe hives 12/06/20 Yes sodium Allergy Intermediate head to toe hives 12/06/20 Yes sodium bicarbonate Allergy Intermediate head to toe hives 12/06/20 Yes sodium chloride Allergy Intermediate head to toe hives 12/06/20 Yes sodium sulfate Allergy Intermediate head to toe hives 12/06/20 Yes tizanidine Allergy Intermediate SICK OF STOMACH/HIVES 12/06/20 Yes Sulfa (Sulfonamide Antibiotics) Adverse Reaction Intermediate Itching 12/06/20 Yes divalproex sodium Adverse Reaction Intermediate VERY SICK OF STOMACH (N/V),BAD VIVID DREAMS & CAN'T SLEEP 12/06/20 Yes tramadol Adverse Reaction Intermediate Nausea and Vomiting 12/06/20 Yes Physical Exam: PE: See Above Constitutional: Well developed, well nourished, no acute distress, non-toxic appearance, anxious. [] HENT: Normocephalic, atraumatic, bilateral external ears normal, nose normal. [] Eyes: PERRLA, EOMI, conjunctiva normal, no discharge. [] Neck: Normal range of motion, no stridor. [] Cardiovascular:Heart rate regular rhythm Lungs & Thorax: Respirations even and unlabored, no retractions, no respiratory distress Skin: Warm, dry; patient has erythemic small papules noted in a linear distribution pattern pattern between the webbing's of bilateral hands and to her left abdomen near groin; there is also an area of erythema and scaly skin to the patient's forehead. Extremities: No cyanosis, ROM intact, no edema. [] Neurologic: Alert and oriented X 3, no focal deficits noted. [] Psychologic: Affect anxious, judgement normal, mood normal. [] Current Patient Data: Vital Signs: Vital Signs Date Time Temp Pulse Resp B/P (MAP) Pulse Ox O2 Delivery O2 Flow Rate FiO2 12/06/20 13:35 97.2 68 16 144/74 (97) 100 Room Air 97.2 EKG: EKG: [] Heart Score: C/O Chest Pain: No Risk Scores: Score 0 - 3: 2.5% MACE over next 6 weeks - Discharge Home Score 4 - 6: 20.3% MACE over next 6 weeks - Admit for Clinical Observation Score 7 - 10: 72.7% MACE over next 6 weeks - Early Invasive Strategies Radiology/Procedures: Radiology/Procedures: [] Course & Med Decision Making: Course & Med Decision Making Pertinent Labs and Imaging studies reviewed. (See chart for details) Patient presents to the emergency department with complaints of reoccurring itchy bug bites for the last year despite moving and extraordinary cleaning efforts. I advised the patient that this could be scabies, will write prescription for Elimite for the patient to use. I encouraged that the patient follow-up with another hook puller for a second opinion. Patient verbalized an understanding of home care, medications, follow-up, and return to ED instructions and was in agreement with the plan of care. [] Dragon Disclaimer: Dragon Disclaimer: This electronic medical record was generated, in whole or in part, using a voice recognition dictation system. Departure Departure Impression: Primary Impression: Rash Additional Impression: Scabies Disposition: 01 DC HOME SELF CARE/HOMELESS Condition: STABLE Referrals: Wai RUSSELL MD (PCP) Patient Instructions: Scabies Additional Instructions: Fill the prescription(s) and use as directed, may repeat treatment in one week if needed. Wash all bedding and clothing in hot water and bag all pillows in a sealed plastic bag for 2 weeks. Vaccum furniture and floors. Follow up with your primary care doctor or hook puller if symptoms persist. Return to the ER if symptoms worsen. [facility] [address] [place] [id number] Scripts Permethrin (ELIMITE) 60 Gm Cream..g. 1 GLENNY TP ONCE, #120 GM 1 Refill massage into skin from head to soles of feet 1x, leave on for 8-14 hours then wash off. May repeat in one week if needed. Prov: MAXIME SHELTON APRN 12/06/20 Problem Qualifiers MAXIME SHELTON APRN Dec 06, 2020 14:27
== END 2020-12-06 14:39 | disposition home or self-care (01) ==
LOC: ER 13:20
DX: B86 Scabies (principal); I10 Essential (primary) hypertension; K21.9 Gastro-esophageal reflux disease without esophagitis; Z87.891 Personal history of nicotine dependence; Z91.041 Radiographic dye allergy status; Z88.1 Allergy status to other antibiotic agents; Z91.013 Allergy to seafood; Z91.030 Bee allergy status; Z91.040 Latex allergy status; Z88.5 Allergy status to narcotic agent; Z88.2 Allergy status to sulfonamides; Z88.6 Allergy status to analgesic agent; Z88.8 Allergy status to other drugs, medicaments and biological substances
CPT/HCPCS: 99282

== ENCOUNTER → 2020-12-06 | Outpatient (CLI) | payer MEDICARE, OTHER ==
[2020-09-05 12:57] VITALS: BP 124/49
[~2020-12-06] MED LIST changes: +HEPARIN PF 500 UNIT/5 ML DISP.SYRIN. IVP ONE
[2020-12-06 13:27] LABS: BASO % 1 % (0-3); EOS # 0.2 x10^3/uL (0.0-0.7); EOS % 2 % (0-3); HEMATOCRIT 37.6 % (36.0-47.0); HEMOGLOBIN 12.5 g/dL (12.0-15.5); LYMPH # 2.6 x10^3/uL (1.0-4.8); LYMPH % 37 % (24-48); MEAN CORPUSCULAR HEMOGLOBIN 29 pg (25-35); MEAN CORPUSCULAR HGB CONC 33 g/dL (31-37); MEAN CORPUSCULAR VOLUME 87 fL (79-100); MONO # 0.7 x10^3/uL (0.0-1.1); MONO % 9 % (0-9); NEUT # 3.7 x10^3/uL (1.8-7.7); NEUT % 51 % (31-73); PLATELET COUNT 201 x10^3/uL (140-400); RED BLOOD COUNT 4.33 x10^6/uL (3.50-5.40); RED CELL DISTRIBUTION WIDTH 14.1 % (11.5-14.5); WHITE BLOOD COUNT 7.2 x10^3/uL (4.0-11.0)
[2020-12-06 13:47] LABS: ALBUMIN/GLOBULIN RATIO 0.8 (1.0-1.7); CALCIUM 8.4 mg/dL (8.5-10.1); GFR 56.2; POTASSIUM 3.8 mmol/L (3.5-5.1); TOTAL BILIRUBIN 0.7 mg/dL (0.2-1.0); TOTAL PROTEIN 6.6 g/dL (6.4-8.2)
== END ==
LOC: OPS 12:33
PROVIDERS: ATTEND Family Medicine
DX: Z45.2 Encounter for adjustment and management of vascular access device (principal); E03.8 Other specified hypothyroidism; I10 Essential (primary) hypertension; K21.9 Gastro-esophageal reflux disease without esophagitis; F41.9 Anxiety disorder, unspecified; Z79.82 Long term (current) use of aspirin
CPT/HCPCS: 36415; 36591; 80053; 82607; 84443; 85025; J1642; 96523

== ENCOUNTER → 2021-02-27 | Outpatient (CLI) | payer MEDICARE, OTHER ==
[2020-12-06 13:35] VITALS: BP 144/74
[~2021-02-27] MED LIST changes: +HEPARIN PF 500 UNIT/5 ML DISP.SYRIN. IVP ONE; +PERM60CR11 TP
== END | disposition home or self-care (01) ==
LOC: OPS 12:58
PROVIDERS: ATTEND Family Medicine
DX: Z45.2 Encounter for adjustment and management of vascular access device (principal); F41.9 Anxiety disorder, unspecified; I10 Essential (primary) hypertension; K21.9 Gastro-esophageal reflux disease without esophagitis; Z79.82 Long term (current) use of aspirin; Z87.891 Personal history of nicotine dependence
CPT/HCPCS: 96523; J1642